=== PATIENT | female | born 1955 | race Caucasian/White ===

== ENCOUNTER 2018-11-30 07:26 | Day surgery (SDC) | payer OTHER, BC ==
[2018-11-29 15:08] VITALS: BMI 22.6
[2018-11-30 09:30] VITALS: TEMP 98.7
[2018-11-30 17:10] VITALS: BP 104/57; PULSE 59
== END 2018-11-30 10:00 | disposition home or self-care (01) ==
LOC: JASU-ENDO 07:26
PROVIDERS: ATTEND Internal Medicine Gastroenterology
PROC: 0DJD8ZZ Inspection of Lower Intestinal Tract, Via Natural or Artificial Opening Endoscopic (ICD-10-PCS; principal; 2018-11-30 08:30)
DX: Z86.010 Personal history of colon polyps (principal); K64.8 Other hemorrhoids; K21.9 Gastro-esophageal reflux disease without esophagitis